=== PATIENT | female | born 1940 | race Caucasian/White ===

== ENCOUNTER → 2017-03-06 | Day surgery (SDC) | payer MEDICARE, BC ==
[~2017-03-06] VITALS: Ht 157.5 cm; Wt 64.8 kg
[~2017-03-06] MED LIST: AZO PO; COLACE100 MG PO; COZAAR100 MG PO; DITROPAN5 MG PO; FIBERCON1 TAB PO; FLORAJEN PO; LEVOTHROID(SYN75 MCG PO; NEXIUM40 MG PO; NORCO 5-325 TA1 EACH PO; POTASSIUM CITRATE PO; TYLENOL EXTRA500 MG PO; [UNRECOGNIZED DRUG - OTHER] PO
--- NOTE | ~2017-03-06 | OR ---
PATIENT'S NAME: ANTOINETTE STRANGE [facility] AGE: 77 Y [address] ROOM: [place] [address] [place] [facility] [place] DATE: 03/06/2017 OR/Procedure Report DISCHARGE DATE: FAMILY PHYSICIAN: Bennett Duenas MD ATTENDING PHYSICIAN: JOSE MORRIS SURGEON: Jose Morris MD MOLDER BENCH: None. DATE OF PROCEDURE: 03/06/2017 PREOPERATIVE DIAGNOSIS: Right nephrolithiasis. POSTOPERATIVE DIAGNOSIS: Right nephrolithiasis. OPERATIVE PROCEDURES: 1. Cystoscopy with placement of indwelling right ureteral stent. 2. Cystoscopy with right retrograde ureteropyelogram. 3. Right extracorporeal shockwave lithotripsy. ANESTHESIA ADMINISTERED: Monitored anesthesia care. INDICATIONS FOR PROCEDURE: The patient is a pleasant 77-year-old female who was recently noted on CT scan to have at least 2 stones in her right renal pelvis, measuring 1 cm in size and 3 mm in size respectively. The patient was explained the risks, benefits, indications, and alternatives to the above procedure, and wished to proceed and consented freely. DESCRIPTION OF PROCEDURE: The patient was brought back to the operating room where she was placed on the OR table in the supine position. A surgical time- out was called where the patient identification, surgical site, and procedure was then verified. We also did verify that the patient received an IV Levaquin antibiotic within an hour of beginning the procedure. The patient underwent successful administration of monitored anesthesia care. The patient was then moved and placed in a low lithotomy position where her genital area was then prepped and draped in the usual sterile fashion. I then carefully advanced a rigid cystoscope easily into the patient's urinary bladder. Her urethra was within normal limits. Upon entering her bladder, full nur cystoscopy was performed. Her bladder was negative for any bladder tumors, cellules, or diverticula. Her ureteral orifices were noted to be in their orthotopic location. Of note, on fluoroscopy, this did appear to be a radiolucent stone consistent with a possible uric acid stone. I then carefully advanced a Sensor guidewire cannulating her right ureteral orifice and navigated the wire up to her right renal pelvis. I was meeting some slight resistance at her ureteropelvic junction and ultimately was able to pass the wire up into her renal collecting system and possibly even manipulate the stone. Then, over the wire, I advanced a 4.8-[place]i multi-length ureteral PATIENT'S NAME: ANTOINETTE STRANGE [facility] AGE: 77 Y [address] ROOM: [place], [place] [address] LOCATION: [facility] [place] DATE: 03/06/2017 OR/Procedure Report DISCHARGE DATE: FAMILY PHYSICIAN: Bennett Duenas MD ATTENDING PHYSICIAN: JOSE MORRIS stent, deploying it, the stent noting a good curl fluoroscopically in the right renal pelvis as well as a good curl visually in the patient's bladder. Then, alongside the stent, I advanced a 5-[place]i open-ended ureteral catheter advancing carefully retirement up the patient's ureter alongside the stent. I then emptied the patient's bladder and removed the cystoscope, leaving the catheter in place, and securing it to her suprapubic area. She was then taken out of the lithotomy position where she was then transferred over to the recovery bed and transported to the lithotripsy treatment bed and placed in the supine position. We then brought the curl of the indwelling right ureteral stent proximally into focal point using fluoroscopy. I then performed a right retrograde ureteropyelogram. I did see a large filling defect within her renal pelvis consistent with her 1 cm right renal calculus. I then began performing shockwave lithotripsy starting at 16 kilovolts and working up sequentially to 24 kilovolts in energy. Approximately, 2400 shocks were delivered to the stone and we had nice fragmentation on fluoroscopic monitoring. My interpretation again of the right retrograde ureteropyelogram, was that she did not have any other filling defects other than the apparent 1 cm stone within the renal pelvis. The patient did tolerate the procedure well. At the conclusion of the procedure under fluoroscopic monitoring, I carefully removed her open-ended ureteral catheter and the stent did not migrate with removal of the catheter. The patient did tolerate the procedure well. The patient was then awoken from monitored anesthesia care where she was then transferred over to the recovery bed and transported to the recovery room in good condition. COMPLICATIONS: None. DRAINS: Indwelling 4.8-[place]i multi-length right ureteral stent. SPECIMENS: None. FOLLOWUP PLAN: We will plan to have the patient back to follow up in Urology Clinic in approximately 3 to [address] scan of her abdomen and pelvis and possible stent removal at that time if no large residual fragments remain following the CT scan. Again, we are getting a CT scan given her history of radiolucent stone. JOSE MORRIS MD GP/modl PATIENT'S NAME: ANTOINETTE STRANGE [facility] AGE: 77 Y [address] ROOM: [place] [address] LOCATION: [facility] [place] DATE: 03/06/2017 OR/Procedure Report DISCHARGE DATE: FAMILY PHYSICIAN: Bennett Duenas MD ATTENDING PHYSICIAN: JOSE MORRIS /[id number] CC: Bennett Duenas MD d: 03/06/[id number] t: 03/07/17 0856, OPERATIVE SUMMARY
[2017-03-06 11:50] LABS: BASOPHIL # 0.1 K/uL (0.0-0.2); BASOPHIL % 1.1 %; EOSINOPHIL # 0.1 K/uL (0.0-0.5); EOSINOPHIL % 1.4 %; HEMATOCRIT 39.9 % (33.0-46.0); HEMOGLOBIN 13.7 g/dL (10.0-15.0); IMMATURE GRANULOCYTE % 0.2 %; LYMPHOCYTE # 2.5 K/uL (0.8-4.0); LYMPHOCYTE % 44.6 %; MCH 29.6 pg (27.0-34.0); MCHC 34.3 gm/dL (32.0-36.5); MCV 86.2 fl (83.0-98.0); MONOCYTE # 0.4 K/uL (0.0-1.0); MONOCYTE % 6.8 %; MPV 9.3 fl (9.4-12.4); NEUTROPHIL # (ANC) 2.6 K/uL (1.8-7.8); NEUTROPHIL % 45.9 %; NRBC % 0 /100WBC (0-0.00); PLATELET COUNT 183 K/uL (150-450); RBC 4.63 M/uL (3.50-5.50); RDW-CV 12.7 % (11.9-14.6); WBC 5.6 K/uL (4.0-11.0)
[2017-03-06 12:03] LABS: ALBUMIN 3.7 gm/dL (3.5-5.0); ANION GAP 11.2 (10.0-19.0); CALCIUM 9.1 mg/dL (8.5-10.5); POTASSIUM 4.2 mMol/L (3.7-5.1); TOTAL BILIRUBIN 0.6 mg/dL (0.0-1.5); TOTAL PROTEIN 7.2 g/dL (6.0-8.4)
== END ==
LOC: GPOC 02-28 13:00 → GSDC 10:28 → GPOC 13:00
PROVIDERS: Urology
PROC: 0TF3XZZ Fragmentation in Right Kidney Pelvis, External Approach (ICD-10-PCS; principal; 2017-03-06)
PROC: 0T768DZ Dilation of Right Ureter with Intraluminal Device, Via Natural or Artificial Opening Endoscopic (ICD-10-PCS; 2017-03-06)
PROC: BT1DYZZ Fluoroscopy of Right Kidney, Ureter and Bladder using Other Contrast (ICD-10-PCS; 2017-03-06)
DX: N20.0 Calculus of kidney (principal); E03.9 Hypothyroidism, unspecified; K58.9 Irritable bowel syndrome, unspecified; K21.9 Gastro-esophageal reflux disease without esophagitis; M81.0 Age-related osteoporosis without current pathological fracture; E78.5 Hyperlipidemia, unspecified; Z90.89 Acquired absence of other organs; Z98.890 Other specified postprocedural states; Z87.440 Personal history of urinary (tract) infections
CPT/HCPCS: C1769; C2617; J1956; J2001; J2405; J7120